=== PATIENT | female | born 1980 | race African-American/Black ===

== ENCOUNTER 2020-06-19 12:30 | Emergency (ER) | payer BC ==
[~2020-06-19] VITALS: Ht 175.3 cm; Wt 122.7 kg
[2020-06-19 12:37] VITALS: TEMP 98.3
[2020-06-19 13:39] LABS: BASO % 0.3 % (0.0-2.0); GRAN # 4.7 (1.4-6.5); GRAN % 74.3 % (42.2-75.2); HEMATOCRIT 42.4 % (37.0-47.0); HEMOGLOBIN 14.1 g/dl (12.5-16.0); LYMPH # 1.4 (1.2-3.4); LYMPH % 21.4 % (20.0-51.0); MEAN CELL VOLUME 81 fl (80.0-100.0); MEAN CORPUSCULAR HEMOGLOBIN 27 pg (27.0-31.0); MEAN CORPUSCULAR HGB CONC 33 g/dl (33.0-37.0); MONO # 0.2 (0.1-0.6); MONO % 3.8 % (1.7-9.3); PLATELET COUNT 124 K/mm3 (130-400); RED BLOOD COUNT 5.21 M/mm3 (4.10-5.30); REDCELL DISTRIBUTION WIDTH-CV 13.1 % (11.5-14.5)
[2020-06-19 13:51] LABS: ALBUMIN 4.2 gm/dL (3.5-5.0); BILIRUBIN,TOTAL 0.8 mg/dL (0.0-1.0); C-REACTIVE PROTEIN 5.3 mg/dL (0.0-0.9); CALCIUM 8.7 mg/dL (8.4-10.2); CREATININE, serum 1.02 (0.52-1.25); POTASSIUM 3.7 mmol/L (3.4-5.0); TOTAL PROTEIN 8.3 gm/dL (6.4-8.2)
[2020-06-19 15:07] LABS: COLLECTION METHOD CLEAN CATCH
[2020-06-19 15:26] LABS: MUCOUS Present /lpf; PH 6 (5-8); URINE APPEARANCE Hazy; URINE BACTERIA Rare /hpf; URINE BILIRUBIN Negative (NEGATIVE); URINE BLOOD Negative (NEGATIVE); URINE COLOR Yellow; URINE GLUCOSE Negative (NEGATIVE); URINE KETONE Trace (NEGATIVE); URINE LEUKOCYTE ESTERASE Negative (NEGATIVE); URINE NITRATE Negative (NEGATIVE); URINE PROTEIN(semi-quant) Negative (NEGATIVE); URINE RBC 0-2 /hpf; URINE UROBILINOGEN Negative (NEGATIVE)
[2020-06-19] MEDS ORDERED: ZOFRAN ODT4 MG PO ×3 (15:58→16:49)
[2020-06-19] MEDS ORDERED: PHENERGAN 25 TA25 MG PO ×3 (15:58→16:49)
[2020-06-19] MEDS ORDERED: ZITHROMAX Z PA250 MG PO ×4 (16:35→16:49)
[2020-06-19 17:00] VITALS: BP 128/84; PULSE 90
[2020-06-19] MEDS ORDERED: GLUCOPHAGE1000 MG PO (17:10)
[2020-06-19] MEDS ORDERED: MEVACOR10 MG PO (17:10)
[2020-06-19] MEDS ORDERED: PRINIVIL10 MG PO (17:10)
== END 2020-06-19 17:00 | disposition home or self-care (01) ==
LOC: COL.ER 12:30
PROVIDERS: Nurse Practitioner
DX: U07.1 COVID-19 (principal); R11.10 Vomiting, unspecified; R42 Dizziness and giddiness; E11.9 Type 2 diabetes mellitus without complications; I10 Essential (primary) hypertension; Z79.84 Long term (current) use of oral hypoglycemic drugs; Z88.8 Allergy status to other drugs, medicaments and biological substances; Z88.6 Allergy status to analgesic agent
CPT/HCPCS: J1885; J2405; J2550; J7030

== ENCOUNTER 2021-11-11 10:00 | Emergency (ER) | payer BC ==
[~2021-11-11] VITALS: Ht 175.3 cm; Wt 128.2 kg
[~2021-11-11 10:00] MED LIST: GLUCOPHAGE1000 MG PO; MEVACOR10 MG PO; PHENERGAN 25 TA25 MG PO; PRINIVIL10 MG PO; ZITHROMAX Z PA250 MG PO; ZOFRAN ODT4 MG PO
[2021-11-11 10:14] VITALS: TEMP 98.2
[2021-11-11 10:48] LABS: BASO % 0.4 % (0.0-2.0); GRAN # 5.9 K/mm3 (1.4-6.5); GRAN % 79.3 % (42.2-75.2); HEMATOCRIT 41.2 % (37.0-47.0); HEMOGLOBIN 13.6 g/dl (12.5-16.0); LYMPH # 0.9 K/mm3 (1.2-3.4); LYMPH % 12.6 % (20.0-51.0); MEAN CELL VOLUME 82 fl (80.0-100.0); MEAN CORPUSCULAR HEMOGLOBIN 27 pg (27-31); MEAN CORPUSCULAR HGB CONC 33 g/dl (33.0-37.0); MEAN PLATELET VOLUME 10.9 fl (7.4-10.4); MONO # 0.6 K/mm3 (0.1-0.6); MONO % 7.6 % (1.7-9.3); PLATELET COUNT 195 K/mm3 (130-400); RED BLOOD COUNT 5.04 M/mm3 (4.10-5.30); REDCELL DISTRIBUTION WIDTH-CV 13.7 % (11.5-14.5)
[2021-11-11 11:00] LABS: ALBUMIN 3.7 gm/dL (3.5-5.0); BILIRUBIN,TOTAL 0.6 mg/dL (0.2-1.2); CALCIUM 9.7 mg/dL (8.4-10.2); CREATININE, serum 0.78 mg/dL (0.57-1.11); POTASSIUM 3.2 mmol/L (3.5-4.5); TOTAL PROTEIN 7.6 gm/dL (6.2-8.1)
[2021-11-11 11:48] LABS: COLLECTION METHOD CLEAN CATCH
[2021-11-11 11:54] LABS: PH 7 (5-8); URINE APPEARANCE Hazy (CLEAR/HAZY); URINE BACTERIA Rare /hpf (NONE SEEN); URINE BILIRUBIN Negative (NEGATIVE); URINE BLOOD Negative (NEGATIVE); URINE COLOR Yellow (YELLOW); URINE GLUCOSE Negative (NEGATIVE); URINE KETONE Trace (NEGATIVE); URINE LEUKOCYTE ESTERASE Trace (NEGATIVE); URINE NITRATE Negative (NEGATIVE); URINE PROTEIN(semi-quant) Negative (NEGATIVE); URINE RBC 0-2 /hpf (0-2); URINE UROBILINOGEN Negative (NEGATIVE)
[2021-11-11] MEDS ORDERED: ZOFRAN ODT4 MG PO (12:06)
[2021-11-11 12:49] VITALS: BP 137/86; PULSE 89
== END 2021-11-11 12:53 | disposition home or self-care (01) ==
LOC: COL.ER 10:00
PROVIDERS: Physician Assistant
DX: U07.1 COVID-19 (principal); E87.6 Hypokalemia; I10 Essential (primary) hypertension; E66.9 Obesity, unspecified; E11.9 Type 2 diabetes mellitus without complications; Z79.84 Long term (current) use of oral hypoglycemic drugs; Z79.899 Other long term (current) drug therapy
CPT/HCPCS: J1885; J2405; J7030